=== PATIENT | male | born 1950 | race Caucasian/White ===

== ENCOUNTER → 2023-09-23 | Outpatient (CLI) | payer MEDICARE | END | disposition home or self-care (01) | LOC: RAH 09:09 | PROVIDERS: ATTEND Internal Medicine Cardiovascular Disease | DX: Q21.12 Patent foramen ovale (principal); I05.9 Rheumatic mitral valve disease, unspecified; I67.9 Cerebrovascular disease, unspecified | CPT/HCPCS: 93306; A4216 ==